=== PATIENT | female | born 1990 | race Caucasian/White ===

== ENCOUNTER 2024-02-14 11:06 | Day surgery (SDC) | payer MEDICAID ==
[2024-02-14] VITALS (9 sets, daily range): BP systolic 114–139; BP diastolic 58–100; PULSE 44–70; RESP 11–15; TEMP 98.1; O2SAT 96–100
[~2024-02-14] VITALS: Ht 149.9 cm; Wt 122.2 kg
[2024-02-14] MEDS ORDERED: ACET250T29 PO (11:40)
[2024-02-14] MEDS ORDERED: SEMA0.253 SQ (11:40)
[2024-02-14 15:03] LABS: GLUCOSE,CSF 57 MG/DL (40-75); TOTAL PROTEIN,CSF 40 MG/DL (15-45)
[2024-02-14 15:33] LABS: APPEARANCE,CSF CLEAR; CSF RBC 1 /CU MM (0); CSF SUPERNATANT COLOR COLORLESS; CSF VOLUME 14 ML; CSF WBC CT 1 /CU MM (0-5); TUBE# COUNTED 3
== END 2024-02-14 17:40 | disposition home or self-care (01) ==
LOC: SSTAY O 11:06
PROVIDERS: ATTEND Nurse Practitioner Family
DX: H47.10 Unspecified papilledema (principal); G93.2 Benign intracranial hypertension
CPT/HCPCS: 62328; 82945; 84157; 89051